=== PATIENT | male | born 1960 | race Caucasian/White ===

== ENCOUNTER 2020-03-02 14:35 | Emergency (ER) | payer SELFPAY ==
[~2020-03-02] VITALS: Ht 167.6 cm; Wt 90.9 kg
[2020-03-02] MEDS ORDERED: CefTRIAXone 1 GM/DEXTROSE 50 ML IV ONE (18:45)
[2020-03-02] MEDS ORDERED: POVIDONE-IODINE 10% 15 ML SOLUTION UD TP ONE (18:45)
[2020-03-02] MEDS ORDERED: LIDOCAINE 1% 10 ML VIAL INJ ONE (18:45)
[2020-03-02] MEDS ORDERED: HYDROCODONE/ACETAMINOPHEN 5-325 MG TABLET PO ONE (18:45)
[2020-03-02 20:54] VITALS: BP 134/78
== END 2020-03-02 21:24 | disposition home or self-care (01) ==
LOC: EMS 14:37
DX: S62.522A Displaced fracture of distal phalanx of left thumb, initial encounter for closed fracture (principal); S61.012A Laceration without foreign body of left thumb without damage to nail, initial encounter; W45.8XXA Other foreign body or object entering through skin, initial encounter; Y93.89 Activity, other specified; Y92.89 Other specified places as the place of occurrence of the external cause; Y99.8 Other external cause status
CPT/HCPCS: 12001; 29125; 73140; 96365; 99284; J0696; J3490